=== PATIENT | female | born 1950 | race Caucasian/White ===

== ENCOUNTER → 2018-05-22 | Outpatient (CLI) | payer OTHER, MEDICAID ==
[~2018-05-22] MED LIST: BENZ-16 PO; FLUO20CA22 PO; HUM7525 SQ; HYDR-3686 PO; HYDR-4353 PO; LISI-643 PO; POTA10TA15 PO; ZOLP10TA PO
== END | disposition home or self-care (01) ==
LOC: CARD DIAG 13:09
PROVIDERS: ATTEND Internal Medicine
DX: I08.3 Combined rheumatic disorders of mitral, aortic and tricuspid valves (principal); I11.0 Hypertensive heart disease with heart failure; I50.9 Heart failure, unspecified; A41.9 Sepsis, unspecified organism; R00.0 Tachycardia, unspecified; J44.9 Chronic obstructive pulmonary disease, unspecified; E11.9 Type 2 diabetes mellitus without complications; Z79.4 Long term (current) use of insulin; Z87.891 Personal history of nicotine dependence
CPT/HCPCS: 93306

== ENCOUNTER 2019-01-21 16:51 | Inpatient (IN) | payer MEDICARE, MEDICAID ==
[~2019-01-21] VITALS: Ht 157.5 cm; Wt 36.3 kg
--- NOTE | 2019-01-21 16:55 | NUR ---
[facility], [place] [phone]
[2019-01-21] MEDS ORDERED: morphine 4 MG/ML inj SYRINge IV ONE ×2 (17:15→18:10)
[2019-01-21] MEDS ORDERED: levoFLOXACIN-Levaquin 750MG/D5 150 ML IV ONE (17:20)
[2019-01-21] MEDS ORDERED: metroNIDAZOLE-Flagyl 500mg/NS 100 ML IV ONE (17:20)
[2019-01-21 17:52] LABS: CLARITY,URINE CLEAR (Clear); COLOR,URINE STRAW (Yellow); GLUCOSE, URINE >=1000 mg/dl (Neg); KETONES,URINE NEGATIVE (Neg); LEUKOCYTE ESTERASE ,URINE NEGATIVE (Neg); NITRITES, URINE NEGATIVE (Neg); OCCULT BLOOD,URINE TRACE-INTACT (Neg); PROTEIN,URINE TRACE mg/dl (Neg); UROBILINOGEN,URINE 0.2 E.U/dL (0.2-1.0)
[2019-01-21 17:55] LABS: UA COLLECTION TYPE VOIDED
--- NOTE | 2019-01-21 18:08 | NUR ---
RELIEVING RN FOR LUNCH, PT IS RESTING QUIETLY ON GURNEY, C/O RT HAND PAIN, ASKING FOR MORPHINE, DR JOHNSON AWARE, GAVE VERBAL ORDER FOR MORPHINE 4MG IV X1 NOW
[2019-01-21 18:11] LABS: MUCUS STRANDS NONE SEEN /LPF (Neg); SQUAMOUS EPITHELIAL CELL,UR MODERATE /LPF (FEW)
[2019-01-21 18:12] LABS: BACTERIA,URINE NONE SEEN /HPF (Neg); RBC,URINE 0-2 /HPF (0-2)
[2019-01-21 18:13] LABS: YEAST FEW /HPF (NEGATIVE)
[2019-01-21 18:20] LABS: BASOPHILS # (AUTO) 0.1 X10'3 (0-0.2); BASOPHILS % (AUTO) 0.6 % (0-1); EOSINOPHILS # (AUTO) 0.1 X10'3 (0-0.9); EOSINOPHILS % (AUTO) 0.4 % (0-6); HEMATOCRIT 32.5 % (35.0-45.0); HEMOGLOBIN 10.7 g/dl (12.0-16.0); LYMPHOCYTES # (AUTO) 1.5 X10'3 (1.1-4.8); LYMPHOCYTES % (AUTO) 11.1 % (21-51); MEAN CORPUSCULAR HEMOGLOBIN 28.1 PG (27.0-31.0); MEAN CORPUSCULAR HGB CONC 32.9 g/dL (33.0-36.5); MEAN CORPUSCULAR VOLUME 85.4 FL (78-98); MEAN PLATELET VOLUME 8.4 FL (7.4-10.4); MONOCYTES # (AUTO) 0.4 X10'3 (0-0.9); MONOCYTES % (AUTO) 3.3 % (2-12); NEUTROPHILS # (AUTO) 11.2 X10'3 (1.8-7.7); NEUTROPHILS % (AUTO) 84.6 % (42-75); PLATELET COUNT 410 X10'3 (140-440); RED CELL DISTRIBUTION WIDTH 15.4 % (11.5-14.5); WHITE BLOOD COUNT 13.2 X10'3 (4.5-11.0)
[2019-01-21 18:28] LABS: ALANINE AMINOTRANSFERASE 6 U/L (12-78); ALBUMIN/GLOBULIN RATIO 0.4 (1.1-1.5); ALKALINE PHOSPHATASE 115 IU/L (46-116); ANION GAP 9 (8-16); ASPARTATE AMINO TRANSFERASE 7 U/L (10-37); BILIRUBIN,TOTAL 0.1 MG/DL (0.1-1.0); BLOOD UREA NITROGEN 14 MG/DL (7-18); BUN/CREATININE RATIO 17.7 (6.6-38.0); C-REACTIVE PROTEIN 15.76 MG/DL (0.0-0.5); CALCIUM 8.9 MG/DL (8.5-10.1); CHLORIDE 93 MMOL/L (99-107); CREATININE 0.79 MG/DL (0.40-0.90); MAGNESIUM 1.5 MG/DL (1.5-2.4); POTASSIUM 3.8 MMOL/L (3.5-5.1); SODIUM 128 MMOL/L (135-145); TOTAL CARBON DIOXIDE 26.1 MMOL/L (24-32); TOTAL PROTEIN 7.6 G/DL (6.4-8.2); eGFR 73 ML/MIN
[2019-01-21 18:35] LABS: GLUCOSE 491 MG/DL (70-104)
[2019-01-21 18:36] LABS: PARTIAL THROMBOPLASTIN TIME 31 SECONDS (22-32)
[2019-01-21] MEDS ORDERED: insulin regular, human 10 units/0.1 ml syringe IV ONE (18:40)
[2019-01-21] MEDS ORDERED: acetaminophen 325mg tablet PO PRN (19:35)
[2019-01-21] MEDS ORDERED: ondansetron/PF 4mg/2ml inj IV PRN (19:35)
[2019-01-21] MEDS ORDERED: magnesium 2GM in 50ml NS 50 ML IV PRN (19:35)
[2019-01-21] MEDS ORDERED: magnesium 4gm in 100ml NS 100 ML IV PRN (19:35)
[2019-01-21] MEDS ORDERED: potassium Cl 40MEQ/NS 500ml 500 ML IV PRN (19:35)
[2019-01-21] MEDS ORDERED: potassium Cl 20 mEq SR tablet PO PRN ×2 (19:35)
[2019-01-21] MEDS ORDERED: magnesium Cl slow-release 64mg tablet PO PRN (19:35)
[2019-01-21] MEDS ORDERED: glucagon, human recombinant 1mg kit SUBCUT PRN (19:40)
[2019-01-21] MEDS ORDERED: MESSAGE TO PHARMACY PO ONE (19:40)
[2019-01-21] MEDS ORDERED: dextrose 50%-water 50ml dispensing syringe IV PRN ×2 (19:40)
[2019-01-21] MEDS ORDERED: dextrose ORAL solution 15 GM/59 ML bottle PO PRN ×2 (19:40)
[2019-01-21 20:19] LABS: HEMOGLOBIN A1C > 14.0 % (4.5-6.2)
--- NOTE | 2019-01-21 20:25 | NUR ---
PATIENT ADMITTED TO ROOM 340B FROM ER FOR OSTEOMYELITIS. PLACED COMFORTABLE IN BED. PATIENT ASKING FOR FOOD, SANDWICH GIVEN.
[2019-01-21 21:00] VITALS: BP 113/73
[2019-01-21] MEDS: HYDROcodone/acetaminophen 5mg/325mg tablet PO PRN (22:09)
[2019-01-21] MEDS: normal saline 1000ml 1,000 ML IV SCH (22:10)
[2019-01-21] MEDS: insulin Lispro (HumaLOG) vial - multi-dose SQ SCH (23:09)
[2019-01-21] MEDS: insulin glargine (Lantus) pen - multi-dose SQ SCH (23:10)
--- NOTE | 2019-01-21 23:15 | NUR ---
PATIENT BECAME AGITATED WHEN INSULIN IS TO BE GIVEN AT THE BACK OF HER ARM WHERE SHE POINTED TO HER LEFT ARM WHEN ASKED WHERE SHE WANTS HER INJECTION TO HER ABDOMEN OR AT THE BACK OF HER UPPER ARM. PATIENT WANTED TO TALK TO OTHER NURSE AND SHE WANTED TO HAVE THE OTHER NURSE TO TAKE CARE OF HER.
[2019-01-21] MEDS: vancomycin/NS 1 GM ADD-VANTAGE 250 ML IV SCH (23:19)
--- NOTE | 2019-01-21 23:30 | NUR ---
Patient report given, questions answered & plan of care reviewed with JESSICA MANCILLA.
[2019-01-21] MEDS: zolpidem 5mg tablet PO PRN (23:56)
[2019-01-22] VITALS (11 sets, daily range): BP systolic 86–160; BP diastolic 44–92
[2019-01-22] MEDS: hydrOXYzine 25 MG tablet PO PRN ×2 (01:32→14:22)
[2019-01-22 04:54] LABS: BASOPHILS % (AUTO) 0.4 % (0-1); EOSINOPHILS # (AUTO) 0.1 X10'3 (0-0.9); EOSINOPHILS % (AUTO) 1.1 % (0-6); HEMATOCRIT 29.2 % (35.0-45.0); HEMOGLOBIN 9.7 g/dl (12.0-16.0); LYMPHOCYTES # (AUTO) 1.1 X10'3 (1.1-4.8); LYMPHOCYTES % (AUTO) 13.3 % (21-51); MEAN CORPUSCULAR HEMOGLOBIN 27.7 PG (27.0-31.0); MEAN CORPUSCULAR HGB CONC 33.1 g/dL (33.0-36.5); MEAN CORPUSCULAR VOLUME 83.9 FL (78-98); MEAN PLATELET VOLUME 8.1 FL (7.4-10.4); MONOCYTES # (AUTO) 0.4 X10'3 (0-0.9); MONOCYTES % (AUTO) 4.6 % (2-12); NEUTROPHILS # (AUTO) 6.7 X10'3 (1.8-7.7); NEUTROPHILS % (AUTO) 80.6 % (42-75); PLATELET COUNT 350 X10'3 (140-440); RED BLOOD COUNT 3.48 X10'6 (4.20-5.60); RED CELL DISTRIBUTION WIDTH 15.2 % (11.5-14.5); WHITE BLOOD COUNT 8.3 X10'3 (4.5-11.0)
[2019-01-22 05:00] LABS: ALBUMIN 1.6 G/DL (3.4-5.0); ANION GAP 5 (8-16); BLOOD UREA NITROGEN 18 MG/DL (7-18); BUN/CREATININE RATIO 20.2 (6.6-38.0); CALCIUM 8.4 MG/DL (8.5-10.1); CHLORIDE 102 MMOL/L (99-107); CREATININE 0.89 MG/DL (0.40-0.90); GLUCOSE 263 MG/DL (70-104); MAGNESIUM 1.3 MG/DL (1.5-2.4); POTASSIUM 3.3 MMOL/L (3.5-5.1); SODIUM 136 MMOL/L (135-145); TOTAL CARBON DIOXIDE 29.4 MMOL/L (24-32); eGFR 63 ML/MIN
[2019-01-22] MEDS ORDERED: morphine 2 MG/ML inj. syringe IV ONE (05:50)
--- NOTE | 2019-01-22 06:01 | NUR ---
Problems reprioritized. Patient report given, questions answered & plan of care reviewed with Arely MANCILLA. Addendum: 01/22/19 at 0602 by Deepa Desai RN Amended: Links added.
--- NOTE | 2019-01-22 07:00 | NUR ---
Patient in room [facility] 340. I have received report from HOLDEN MANCILLA and had the opportunity to ask questions and assume patient care.
[2019-01-22] MEDS: potassium CL 10mEq/100ml bag 100 ML IV PRN ×4 (08:40→20:06)
[2019-01-22] MEDS: K and/or MAG REPLACEMENT MC SCH (08:46)
[2019-01-22] MEDS ORDERED: ringers solution, lacted 1,000 ML IV SCH (09:42)
[2019-01-22] MEDS ORDERED: morphine 4 MG/ML inj SYRINge IV PRN ×2 (09:45)
[2019-01-22] MEDS ORDERED: enalaprilat dihydrate 2.5mg/2ml vial IV PRN (09:45)
[2019-01-22] MEDS ORDERED: fentaNYL/PF 50MCG/1 ML 2ML syringe IV PRN ×2 (09:45)
[2019-01-22] MEDS ORDERED: labetalol 20mg/4ml (5mg/ml) syringe IV PRN (09:45)
[2019-01-22] MEDS ORDERED: ondansetron/PF 4mg/2ml inj IV PRN (09:45)
[2019-01-22] MEDS ORDERED: BUPIVAcaine/PF 2.5mg/ml (0.25%) 10ml vial ONE (11:56)
[2019-01-22] MEDS ORDERED: potassium Cl 20 mEq/100mL bag IV ONE (12:10)
[2019-01-22] MEDS ORDERED: sevoflurane 250ml liquid IH ONE (12:10)
[2019-01-22] MEDS ORDERED: midazolam 2 mg/2 ml injection ONE (12:11)
[2019-01-22] MEDS ORDERED: fentaNYL/PF 50MCG/1 ML 2ML syringe ONE (12:11)
[2019-01-22] MEDS ORDERED: propofol inj 20 ML IV ONE (12:25)
[2019-01-22] MEDS ORDERED: ePHEDrine 50MG/ML INJ. ONE (12:25)
[2019-01-22] MEDS ORDERED: dexamethasone sod phosphate 4mg/ml inj. ONE (12:25)
[2019-01-22] MEDS ORDERED: ondansetron/PF 4mg/2ml inj ONE (12:29)
--- NOTE | 2019-01-22 12:55 | NUR ---
DM consult: Pt with T2DM with A1c >14. Pt currently documented as confused and A/O x1; DM ed not appropriate at this time. Pt admit with osteomyelitis to right finger, currently in surgical waiting room to undergo finger amputation. Pt will need protein and DM ed prior to discharge once alert and oriented. Noted that pt with an underweight BMI however current documented wt unreliable as it is pt stated and pt currently confused. Pt currently on heart healthy diet with documented 100% PO intake x 1 meal. [employer] for addition of CHO controlled diet given T2DM with elevated A1c. No documented LBM. Will continue to follow. Recommendations: 1) Continue heart healthy diet with addition of CHO controlled 2) Monitor need for ONS 3) DM and protein education prior to discharge once pt alert and oriented 4) Wt per rx Addendum: 01/22/19 at [address] Amended: Links added.
--- NOTE | 2019-01-22 13:00 | NUR ---
Received from OR via bed, accompanied by Anesthesiologist. Report received. Initial physical assessment done and recorded.
[2019-01-22] MEDS: HYDROcodone/acetaminophen 5mg/325mg tablet PO PRN (14:22)
[2019-01-22] MEDS: normal saline 1000ml 1,000 ML IV SCH (17:00)
--- NOTE | 2019-01-22 18:30 | NUR ---
Patient in room [facility] 340. I have received report from Arely MANCILLA and had the opportunity to ask questions and assume patient care.
--- NOTE | 2019-01-22 18:30 | NUR ---
Problems reprioritized. Patient report given, questions answered & plan of care reviewed with jody saha.
[2019-01-22] MEDS: oxyCODONE IR 5mg (immed. release) tablet PO PRN (18:52)
[2019-01-22] MEDS: insulin Lispro (HumaLOG) vial - multi-dose SQ SCH ×2 (18:56→21:27)
[2019-01-22] MEDS: lactobacillus rhamnosus 10,000 MMU CELLS/CAPSULE PO SCH (19:02)
[2019-01-22] MEDS: vancomycin/NS 1 GM ADD-VANTAGE 250 ML IV SCH (21:24)
[2019-01-22] MEDS: insulin glargine (Lantus) pen - multi-dose SQ SCH (21:30)
[2019-01-22] MEDS: zolpidem 5mg tablet PO PRN (21:39)
[2019-01-23] MEDS ORDERED: DOXE10CA2 PO (00:43)
[2019-01-23] MEDS ORDERED: LISI-604 PO (00:43)
[2019-01-23] MEDS ORDERED: BACL10TA PO (00:43)
[2019-01-23] MEDS ORDERED: FURO-150 PO (00:43)
[2019-01-23] MEDS ORDERED: FLUO10CA28 PO (00:43)
[2019-01-23] MEDS ORDERED: PIMO1TAB2 PO (00:47)
[2019-01-23] MEDS ORDERED: DICL100T85 PO (00:47)
[2019-01-23] MEDS ORDERED: TRAZ-251 PO (00:49)
[2019-01-23 01:00] VITALS: BP 154/76
[2019-01-23 04:00] VITALS: BP 193/83
[2019-01-23] MEDS: oxyCODONE IR 5mg (immed. release) tablet PO PRN ×2 (04:27→10:06)
[2019-01-23] MEDS: hydrOXYzine 25 MG tablet PO PRN (04:27)
[2019-01-23 05:30] VITALS: BP 185/84
--- NOTE | 2019-01-23 05:30 | NUR ---
barrett REDDY paged: PAGER ID: [phone] MESSAGE: Robert 340B Surgical [id number] Trevin RN BP is 185/84, Pt post-op finger amp. Pt off Lasix and lisinopril for 2 days, med rec never done. Please advise, thank you
--- NOTE | 2019-01-23 06:27 | NUR ---
Problems reprioritized. Patient report given, questions answered & plan of care reviewed with Arely MANCILLA.
[2019-01-23 06:36] LABS: BASOPHILS % (AUTO) 0.1 % (0-1); EOSINOPHILS % (AUTO) 0 % (0-6); HEMATOCRIT 34.8 % (35.0-45.0); HEMOGLOBIN 11.5 g/dl (12.0-16.0); LYMPHOCYTES # (AUTO) 1.2 X10'3 (1.1-4.8); LYMPHOCYTES % (AUTO) 8.5 % (21-51); MEAN CORPUSCULAR HEMOGLOBIN 27.8 PG (27.0-31.0); MEAN CORPUSCULAR HGB CONC 33.2 g/dL (33.0-36.5); MEAN CORPUSCULAR VOLUME 83.7 FL (78-98); MEAN PLATELET VOLUME 7.9 FL (7.4-10.4); MONOCYTES # (AUTO) 0.4 X10'3 (0-0.9); NEUTROPHILS # (AUTO) 12.5 X10'3 (1.8-7.7); NEUTROPHILS % (AUTO) 88.4 % (42-75); PLATELET COUNT 524 X10'3 (140-440); RED BLOOD COUNT 4.15 X10'6 (4.20-5.60); RED CELL DISTRIBUTION WIDTH 15.3 % (11.5-14.5); WHITE BLOOD COUNT 14.1 X10'3 (4.5-11.0)
--- NOTE | 2019-01-23 06:36 | NUR ---
Patient in room [facility] 340. I have received report from ORALIA MANCILLA and had the opportunity to ask questions and assume patient care.
[2019-01-23 07:00] VITALS: BP 156/73
[2019-01-23 07:18] LABS: ALBUMIN 1.6 G/DL (3.4-5.0); ANION GAP 6 (8-16); BLOOD UREA NITROGEN 11 MG/DL (7-18); BUN/CREATININE RATIO 16.7 (6.6-38.0); CALCIUM 9.1 MG/DL (8.5-10.1); CHLORIDE 104 MMOL/L (99-107); CREATININE 0.66 MG/DL (0.40-0.90); GLUCOSE 204 MG/DL (70-104); MAGNESIUM 1.5 MG/DL (1.5-2.4); POTASSIUM 4.2 MMOL/L (3.5-5.1); SODIUM 137 MMOL/L (135-145); TOTAL CARBON DIOXIDE 26.6 MMOL/L (24-32); eGFR 90 ML/MIN
[2019-01-23] MEDS ORDERED: hyDRALAzine 10mg tablet PO PRN (07:45)
[2019-01-23] MEDS: K and/or MAG REPLACEMENT MC SCH (08:00)
[2019-01-23] MEDS: lactobacillus rhamnosus 10,000 MMU CELLS/CAPSULE PO SCH (08:01)
[2019-01-23] MEDS: insulin Lispro (HumaLOG) vial - multi-dose SQ SCH (09:31)
[2019-01-23] MEDS ORDERED: FLUoxetine 10mg capsule PO SCH (11:30)
[2019-01-23] MEDS ORDERED: lisinopril 5mg tablet PO SCH (11:30)
[2019-01-23] MEDS ORDERED: PER10325T PO (11:40)
[2019-01-23] MEDS ORDERED: CLIN-5 PO (11:40)
--- NOTE | 2019-01-23 11:52 | NUR ---
DISCHARGE ORDERS PUT IN COMPUTER AT 1132. AT 1155 HOSPITALIST CAME TO SPEAK TO PT ABOUT DISCHARGE. I HAVE TRIED TO CALL ALL THREE [employer]AND [employer]UGHTERS FOR TRANSPORTATION FOR THIS PT. NO ONE IS ANSWERING. CALLED PT'S BOYFRIEND AND HE STATES, ITS THE GRAD [employer]UGHTERS WHO WILL PICK HER UP, NOT HIM
--- NOTE | 2019-01-23 12:21 | NUR ---
CALLED FAMILY AGAIN OR PICK-UP. NO ANSWER
[2019-01-23] MEDS ORDERED: [UNRECOGNIZED DRUG - OTHER] PO SCH (13:00)
--- NOTE | 2019-01-23 13:40 | NUR ---
PT HAD A PICTURE OF HER WOUND ON ADMISSION. THIS WOUND WAS AMPUTATED. NO FINGER TO TAKE PIC OF ON D/C
--- NOTE | 2019-01-23 14:27 | NUR ---
PT'S FAMILY CAME TO PICK HER UP AND THEY LEFT WITHOUT WAITING TO SIGN DISCHARGE PAPERS. I CALLED THE PT'S GRAND DAUGHTER ON THE PHONE AND ASKED HER TO COME BACK TO SIGN PAPERS AND GO OVER HER DISCHARGE INSTRUCTIONS. PT AND GRAND DAUGHTER REFUSED TO LISTEN TO D/C INSTRUCTIONS OR SIGN MEDICARE FORM. SHE ALSO REFUSED TO TAKE PRESCRIPTION FOR PAIN MEDS. SHE STATED WE GO NOW OR YOU NEED TO FIND ANOTHER RIDE FOR HER. I STATED I UNDERSTAND GO AHEAD. SCRIPT WAS LEFT BEHIND. Addendum: 01/23/19 at 1448 by Arely Bonilla RN ALSO ABX PERSCRIBED POST OP WERE LEFT BEHIND
--- NOTE | 2019-01-23 15:12 | NUR ---
SPOKE WITH GRAND DAUGHTER, SHE ASKED ME TO CALL IN PT'S ABX TO CV IN [place]. SCRIPT CALLED IN AT [id number]
[2019-01-23] MEDS ORDERED: furosemide 20MG tablet PO SCH (20:00)
[2019-01-23] MEDS ORDERED: doxepin 10mg capsule PO SCH (21:00)
[2019-01-23] MEDS ORDERED: traZODone 50mg tablet PO SCH (21:00)
[2019-01-23] MEDS ORDERED: baclofen 10mg tablet PO SCH (21:00)
[2019-01-24] MEDS ORDERED: VANCOMYCIN LEVEL IV ONE (21:30)
== END 2019-01-23 14:28 | disposition home or self-care (01) | DRG 987 ==
LOC: ER 16:51 → SUR 3N 21:03
PROVIDERS: ADMIT Internal Medicine; ATTEND Family Medicine
PROC: 0L970ZZ Drainage of Right Hand Tendon, Open Approach (ICD-10-PCS; 2019-01-22)
PROC: 0X6N0Z1 Detachment at Right Index Finger, High, Open Approach (ICD-10-PCS; principal; 2019-01-22 12:10)
DX: E10.69 Type 1 diabetes mellitus with other specified complication (principal); E43 Unspecified severe protein-calorie malnutrition; E87.1 Hypo-osmolality and hyponatremia; M86.8X4 Other osteomyelitis, hand; M65.841 Other synovitis and tenosynovitis, right hand; B95.62 Methicillin resistant Staphylococcus aureus infection as the cause of diseases classified elsewhere; E03.9 Hypothyroidism, unspecified; E10.65 Type 1 diabetes mellitus with hyperglycemia; I10 Essential (primary) hypertension; E86.0 Dehydration; F32.9 Major depressive disorder, single episode, unspecified; I25.10 Atherosclerotic heart disease of native coronary artery without angina pectoris; J44.9 Chronic obstructive pulmonary disease, unspecified; F12.90 Cannabis use, unspecified, uncomplicated; F17.210 Nicotine dependence, cigarettes, uncomplicated; K21.9 Gastro-esophageal reflux disease without esophagitis; Z79.4 Long term (current) use of insulin; Z85.038 Personal history of other malignant neoplasm of large intestine; Z88.0 Allergy status to penicillin; Z79.899 Other long term (current) drug therapy
CPT/HCPCS: 36415; 71045; 73140; 80048; 80053; 81001; 82948; 83036; 83605; 83735; 84145; 85025; 85610; 85651; 85730; 86140; 87040; 87070; 87075; 87077; 87088; 87102; 87186; 88305; 88311; 93005; 96365; 96367; 96375; 96376; 99285; A4618; A6222; A6446; A6449; A7000; G0378; J1100; J1815; J1956; J2250; J2270; J2405; J2704; J3010; J3370; J3480; J3490; J7030; J7120; Z7610

== ENCOUNTER 2019-07-21 14:04 | Inpatient (IN) | payer MEDICARE, MEDICAID ==
[~2019-07-21] VITALS: Ht 144.8 cm; Wt 36.0 kg
[~2019-07-21 14:04] MED LIST changes: +BACL10TA PO; -BENZ-16 PO; +CLIN-5 PO; +DICL100T85 PO; +DOXE10CA2 PO; +FLUO10CA28 PO; -FLUO20CA22 PO; +FURO-150 PO; -HYDR-3686 PO; -HYDR-4353 PO; +LISI-604 PO; -LISI-643 PO; +PIMO1TAB2 PO; -POTA10TA15 PO; +TRAZ-251 PO; -ZOLP10TA PO
[2019-07-21] MEDS ORDERED: HYDROcodone/acetaminophen 10/325mg tab PO ONE (14:45)
[2019-07-21] MEDS ORDERED: ondansetron/PF 4mg/2ml inj IV ONE (15:10)
[2019-07-21] MEDS ORDERED: morphine 4 MG/ML inj SYRINge IV ONE ×2 (15:10→18:50)
[2019-07-21] MEDS ORDERED: CefTRIAXone/D5W-Rocephin 1gm 50 ML IV ONE (15:20)
[2019-07-21] MEDS ORDERED: vancomycin/NS 1 GM ADD-VANTAGE 250 ML X 1 DOSE IV ONE (15:45)
[2019-07-21 16:04] LABS: BASOPHILS # (AUTO) 0.1 X10'3 (0-0.2); EOSINOPHILS % (AUTO) 0.4 % (0-6); HEMATOCRIT 31.6 % (35.0-45.0); HEMOGLOBIN 10.8 g/dl (12.0-16.0); LYMPHOCYTES # (AUTO) 1.4 X10'3 (1.1-4.8); LYMPHOCYTES % (AUTO) 15.6 % (21-51); MEAN CORPUSCULAR HEMOGLOBIN 30.3 PG (27.0-31.0); MEAN CORPUSCULAR HGB CONC 34.2 g/dL (33.0-36.5); MEAN CORPUSCULAR VOLUME 88.6 FL (78-98); MEAN PLATELET VOLUME 7.3 FL (7.4-10.4); MONOCYTES # (AUTO) 0.4 X10'3 (0-0.9); MONOCYTES % (AUTO) 4.3 % (2-12); NEUTROPHILS # (AUTO) 7.3 X10'3 (1.8-7.7); NEUTROPHILS % (AUTO) 78.7 % (42-75); PLATELET COUNT 494 X10'3 (140-440); RED BLOOD COUNT 3.57 X10'6 (4.20-5.60); RED CELL DISTRIBUTION WIDTH 14.1 % (11.5-14.5); WHITE BLOOD COUNT 9.2 X10'3 (4.5-11.0)
[2019-07-21 16:27] LABS: ALANINE AMINOTRANSFERASE 11 U/L (12-78); ALBUMIN 2.1 G/DL (3.4-5.0); ALBUMIN/GLOBULIN RATIO 0.4 (1.1-1.5); ALKALINE PHOSPHATASE 97 IU/L (46-116); ANION GAP 6 (8-16); ASPARTATE AMINO TRANSFERASE 10 U/L (10-37); BILIRUBIN,TOTAL 0.2 MG/DL (0.1-1.0); BLOOD UREA NITROGEN 15 MG/DL (7-18); BUN/CREATININE RATIO 16.7 (6.6-38.0); C-REACTIVE PROTEIN 10.19 MG/DL (0.0-0.5); CALCIUM 8.7 MG/DL (8.5-10.1); CHLORIDE 97 MMOL/L (99-107); GLUCOSE 392 MG/DL (70-104); POTASSIUM 3.2 MMOL/L (3.5-5.1); SODIUM 133 MMOL/L (135-145); TOTAL CARBON DIOXIDE 29.7 MMOL/L (24-32); TOTAL PROTEIN 7.4 G/DL (6.4-8.2); eGFR 62 ML/MIN
[2019-07-21] MEDS ORDERED: FORM20VI INH (16:39)
[2019-07-21] MEDS ORDERED: LEVO50TA8 PO (16:39)
[2019-07-21] MEDS ORDERED: AMLO5TAB16 PO (16:39)
[2019-07-21] MEDS ORDERED: ATR0.5NEB INH (16:39)
[2019-07-21] MEDS ORDERED: CELE100C98 PO (16:39)
[2019-07-21] MEDS ORDERED: INSU100V40 SQ (16:39)
[2019-07-21] MEDS ORDERED: INSU100V9 SQ (16:39)
[2019-07-21] MEDS ORDERED: PANT40TA4 PO (16:39)
[2019-07-21] MEDS ORDERED: acetaminophen 325mg tablet PO PRN (16:40)
[2019-07-21] MEDS ORDERED: magnesium hydroxide 30ml (MOM) UD suspension PO PRN (16:40)
[2019-07-21] MEDS ORDERED: ondansetron/PF 4mg/2ml inj IV PRN (16:40)
[2019-07-21] MEDS ORDERED: mag hydrox/Alum hydrox/simeth 30ml oral suspension PO PRN (16:40)
[2019-07-21] MEDS ORDERED: albuterol 2.5 MG/3 ML nebule NEB PRN (18:05)
[2019-07-21] MEDS ORDERED: LORazepam 2 mg/ml vial IV ONE (18:50)
[2019-07-21 19:25] VITALS: BP 101/55
--- NOTE | 2019-07-21 19:25 | NUR ---
PATIENT ASMITTED TO ROOM 359A FROM ER FOR LEFT MIDDLE FINGER NECROSIS. PLACED COMFORTABLE IN BED VITAL SIGNS TAKEN AND RECORDED.
[2019-07-21] MEDS: ipratropium 0.5 MG/2.5ML nebule IH SCH (19:55)
[2019-07-21] MEDS: furosemide 20MG tablet PO SCH (20:00)
[2019-07-21] MEDS: celeCOXIB 100mg capsule PO SCH (20:00)
[2019-07-21] MEDS: normal saline 1000ml 1,000 ML IV SCH (20:06)
[2019-07-21] MEDS: clindamycin 600mg/D5W 50ml 50 ML IV SCH (20:13)
[2019-07-21] MEDS: baclofen 10mg tablet PO SCH (20:18)
[2019-07-21] MEDS: traZODone 50mg tablet PO SCH (20:18)
[2019-07-21] MEDS: heparin, porcine 5000 units/ml vial SQ SCH (20:23)
[2019-07-21] MEDS ORDERED: insulin glargine (Lantus) pen - multi-dose SQ SCH (21:00)
[2019-07-21] MEDS ORDERED: dextrose 50%-water 50ml dispensing syringe IV PRN ×2 (21:55)
[2019-07-21] MEDS ORDERED: dextrose ORAL solution 15 GM/59 ML bottle PO PRN ×2 (21:55)
[2019-07-21] MEDS ORDERED: glucagon, human recombinant 1mg kit SUBCUT PRN (21:55)
[2019-07-21] MEDS ORDERED: MESSAGE TO PHARMACY PO ONE (21:55)
[2019-07-21] MEDS: insulin Lispro (HumaLOG) vial - multi-dose SQ SCH (22:54)
[2019-07-21] MEDS: insulin glargine (Lantus) pen - multi-dose SQ SCH (22:57)
[2019-07-22] VITALS (18 sets, daily range): BP systolic 89–152; BP diastolic 40–78
[2019-07-22] MEDS: clindamycin 600mg/D5W 50ml 50 ML IV SCH ×4 (01:57→19:41)
[2019-07-22] MEDS: morphine 2 MG/ML inj. syringe IV PRN ×4 (04:54→21:00)
[2019-07-22] MEDS: normal saline 1000ml 1,000 ML IV SCH ×4 (04:59→23:28)
--- NOTE | 2019-07-22 05:23 | NUR ---
Pt has been unable to answer any admit questions, sedated and now confused, yelling not answering any questions. Addendum: 07/22/19 at 0524 by Miguelina Matthews RN Amended: Links added.
--- NOTE | 2019-07-22 06:28 | NUR ---
Problems reprioritized. Patient report given, questions answered & plan of care reviewed with NAN MANCILLA.
--- NOTE | 2019-07-22 06:35 | NUR ---
Patient in room [facility] 359. I have received report from Tennille Null RN and had the opportunity to ask questions and assume patient care.
[2019-07-22 06:43] LABS: ALBUMIN 1.7 G/DL (3.4-5.0); ANION GAP 9 (8-16); BLOOD UREA NITROGEN 9 MG/DL (7-18); BUN/CREATININE RATIO 16.1 (6.6-38.0); CALCIUM 7.9 MG/DL (8.5-10.1); CHLORIDE 102 MMOL/L (99-107); CREATININE 0.56 MG/DL (0.40-0.90); GLUCOSE 231 MG/DL (70-104); SODIUM 136 MMOL/L (135-145); TOTAL CARBON DIOXIDE 24.6 MMOL/L (24-32); eGFR > 90 ML/MIN
[2019-07-22] MEDS: ipratropium 0.5 MG/2.5ML nebule IH SCH ×2 (07:36→19:32)
[2019-07-22] MEDS: furosemide 20MG tablet PO SCH ×2 (08:00→20:00)
[2019-07-22] MEDS: insulin Lispro (HumaLOG) vial - multi-dose SQ SCH (09:15)
[2019-07-22 09:17] LABS: BASOPHILS % (AUTO) 0.5 % (0-1); EOSINOPHILS # (AUTO) 0.1 X10'3 (0-0.9); EOSINOPHILS % (AUTO) 0.8 % (0-6); HEMATOCRIT 33.2 % (35.0-45.0); HEMOGLOBIN 11.4 g/dl (12.0-16.0); LYMPHOCYTES # (AUTO) 0.8 X10'3 (1.1-4.8); LYMPHOCYTES % (AUTO) 8.7 % (21-51); MEAN CORPUSCULAR HEMOGLOBIN 30.1 PG (27.0-31.0); MEAN CORPUSCULAR HGB CONC 34.2 g/dL (33.0-36.5); MEAN CORPUSCULAR VOLUME 87.9 FL (78-98); MEAN PLATELET VOLUME 7.2 FL (7.4-10.4); MONOCYTES # (AUTO) 0.4 X10'3 (0-0.9); MONOCYTES % (AUTO) 4.7 % (2-12); NEUTROPHILS # (AUTO) 7.8 X10'3 (1.8-7.7); NEUTROPHILS % (AUTO) 85.3 % (42-75); PLATELET COUNT 386 X10'3 (140-440); RED BLOOD COUNT 3.78 X10'6 (4.20-5.60); RED CELL DISTRIBUTION WIDTH 14.5 % (11.5-14.5); WHITE BLOOD COUNT 9.2 X10'3 (4.5-11.0)
[2019-07-22] MEDS: heparin, porcine 5000 units/ml vial SQ SCH ×2 (09:17→19:42)
[2019-07-22] MEDS: amLODIPine 5mg tablet PO SCH (09:18)
[2019-07-22] MEDS: celeCOXIB 100mg capsule PO SCH ×2 (09:18→19:41)
[2019-07-22] MEDS: pantoprazole 40mg Tablet.DR PO SCH (09:18)
[2019-07-22] MEDS: FLUoxetine 10mg capsule PO SCH (09:18)
[2019-07-22] MEDS: levoTHYROXINE 25mcg tablet PO SCH (09:19)
[2019-07-22 09:36] LABS: HEMOGLOBIN A1C > 14.0 % (4.5-6.2)
[2019-07-22] MEDS ORDERED: potassium Cl 20 mEq SR tablet PO PRN ×2 (11:00)
[2019-07-22] MEDS ORDERED: magnesium 4gm in 100ml NS 100 ML IV PRN (11:00)
[2019-07-22] MEDS ORDERED: magnesium Cl slow-release 64mg tablet PO PRN (11:00)
[2019-07-22] MEDS: potassium CL 10mEq/100ml bag 100 ML IV PRN ×4 (12:14→17:34)
[2019-07-22] MEDS ORDERED: BUPIVAcaine/PF 2.5 mg/ml (0.25%) 30ml vial ONE (14:30)
[2019-07-22] MEDS ORDERED: ringers solution, lacted 1,000 ML IV SCH (15:24)
[2019-07-22] MEDS ORDERED: proCHLORperazine 10 MG/2 ml inj IV PRN (15:25)
[2019-07-22] MEDS ORDERED: morphine 4 MG/ML inj SYRINge IV PRN ×2 (15:25)
[2019-07-22] MEDS ORDERED: ondansetron/PF 4mg/2ml inj IV PRN (15:25)
[2019-07-22] MEDS ORDERED: meperidine/PF 25mg/ml syringe IV PRN ×3 (15:25)
[2019-07-22] MEDS ORDERED: sevoflurane 250ml liquid IH ONE (15:26)
[2019-07-22] MEDS ORDERED: fentaNYL/PF 50MCG/1 ML 2ML syringe ONE (15:30)
[2019-07-22] MEDS ORDERED: propofol inj 20 ML IV ONE (16:02)
--- NOTE | 2019-07-22 16:15 | NUR ---
Received from OR via BED, accompanied by Anesthesiologist DR ARGUETA-- and report given by Anesthesiolgist. PATIENT A&OX4, DENIES PAIN, V/S WNL, NEUROVASCULAR CHECKS INTACT, 22G PIV RUE, SCD ON, LEFT HAND DRESSING ON CDI
[2019-07-22] MEDS ORDERED: VANCOMYCIN LEVEL PO ONE (16:30)
--- NOTE | 2019-07-22 17:05 | NUR ---
PATIENT A&OX4, DENIES PAIN, V/S WNL, NEUROVASCULAR CHECKS INTACT, 22G PIV RUE, SCD ON, LEFT HAND DRESSING ON CDI, PATIENT TAKEN TO 359A WITH ALL BELONGINGS AND HOOKED UP TO MONITORS IN ROOM AND REPORT GIVEN TO RN WHO HAS TAKEN OVER PATIENT CARE.
[2019-07-22] MEDS: vancomycin/NS 1 GM ADD-VANTAGE 250 ML IV SCH (17:36)
--- NOTE | 2019-07-22 18:40 | NUR ---
Problems reprioritized. Patient report given, questions answered & plan of care reviewed with CHARO Chang.
[2019-07-22] MEDS: K and/or MAG REPLACEMENT MC SCH (20:00)
[2019-07-22] MEDS: baclofen 10mg tablet PO SCH (21:00)
[2019-07-22] MEDS: traZODone 50mg tablet PO SCH (21:00)
[2019-07-22] MEDS ORDERED: insulin glargine (Lantus) pen - multi-dose SQ SCH (21:00)
[2019-07-22] MEDS: insulin glargine (Lantus) pen - multi-dose SQ SCH (21:00)
[2019-07-23] VITALS: BP 146/83
[2019-07-23] MEDS: clindamycin 600mg/D5W 50ml 50 ML IV SCH ×2 (02:20→07:15)
[2019-07-23] MEDS: morphine 2 MG/ML inj. syringe IV PRN ×4 (02:33→19:10)
[2019-07-23 05:21] LABS: BASOPHILS # (AUTO) 0.1 X10'3 (0-0.2); BASOPHILS % (AUTO) 0.5 % (0-1); EOSINOPHILS % (AUTO) 0.3 % (0-6); HEMATOCRIT 33.5 % (35.0-45.0); HEMOGLOBIN 11.3 g/dl (12.0-16.0); LYMPHOCYTES # (AUTO) 0.8 X10'3 (1.1-4.8); LYMPHOCYTES % (AUTO) 7.8 % (21-51); MEAN CORPUSCULAR HEMOGLOBIN 30.4 PG (27.0-31.0); MEAN CORPUSCULAR HGB CONC 33.9 g/dL (33.0-36.5); MEAN CORPUSCULAR VOLUME 89.6 FL (78-98); MEAN PLATELET VOLUME 7.4 FL (7.4-10.4); MONOCYTES # (AUTO) 0.5 X10'3 (0-0.9); MONOCYTES % (AUTO) 4.7 % (2-12); NEUTROPHILS # (AUTO) 9.4 X10'3 (1.8-7.7); NEUTROPHILS % (AUTO) 86.7 % (42-75); PLATELET COUNT 488 X10'3 (140-440); RED BLOOD COUNT 3.74 X10'6 (4.20-5.60); RED CELL DISTRIBUTION WIDTH 14.6 % (11.5-14.5); WHITE BLOOD COUNT 10.9 X10'3 (4.5-11.0)
[2019-07-23 05:36] LABS: ALBUMIN 1.8 G/DL (3.4-5.0); ANION GAP 13 (8-16); BLOOD UREA NITROGEN 13 MG/DL (7-18); BUN/CREATININE RATIO 16.7 (6.6-38.0); CALCIUM 8.3 MG/DL (8.5-10.1); CHLORIDE 102 MMOL/L (99-107); CREATININE 0.78 MG/DL (0.40-0.90); GLUCOSE 159 MG/DL (70-104); POTASSIUM 3.9 MMOL/L (3.5-5.1); SODIUM 137 MMOL/L (135-145); TOTAL CARBON DIOXIDE 21.6 MMOL/L (24-32); eGFR 74 ML/MIN
--- NOTE | 2019-07-23 06:37 | NUR ---
Report given to CHARO Johns
--- NOTE | 2019-07-23 06:41 | NUR ---
Patient in room [facility] 359. I have received report from Bernardo MANCILLA and had the opportunity to ask questions and assume patient care.
[2019-07-23] MEDS: levoTHYROXINE 25mcg tablet PO SCH (07:18)
[2019-07-23] MEDS: amLODIPine 5mg tablet PO SCH (07:19)
[2019-07-23] MEDS: pantoprazole 40mg Tablet.DR PO SCH (07:19)
[2019-07-23] MEDS: celeCOXIB 100mg capsule PO SCH ×2 (07:19→19:10)
[2019-07-23] MEDS: furosemide 20MG tablet PO SCH ×2 (07:19→19:12)
[2019-07-23] MEDS: heparin, porcine 5000 units/ml vial SQ SCH ×2 (07:19→19:11)
[2019-07-23] MEDS: FLUoxetine 10mg capsule PO SCH (07:19)
[2019-07-23] MEDS: K and/or MAG REPLACEMENT MC SCH ×2 (08:00→20:00)
[2019-07-23] MEDS: ipratropium 0.5 MG/2.5ML nebule IH SCH ×2 (08:20→20:21)
[2019-07-23] MEDS: insulin Lispro (HumaLOG) vial - multi-dose SQ SCH ×3 (08:38→19:00)
[2019-07-23 09:00] VITALS: BP 152/75
[2019-07-23] MEDS: normal saline 1000ml 1,000 ML IV SCH (10:49)
--- NOTE | 2019-07-23 11:47 | NUR ---
DM consult: Pt with A1c greater than 14. Pt is non-compliant with DM management with hx meth abuse per H&P, secondary social studies teacher has been consulted. Pt admit with cellulitis to left hand with necrosis to middle finger with possible osteomyelitis and sepsis; sepsis score 0 per H&P. Pt s/p amputation to middle finger and third metacarpal. Pt documented as confused, A/O x 2, and agitated. Pt would benefit from protein and DM education with referral to outpatient DM class prior to discharge once pt stable, alert, and oriented. Pt on CHO controlled diet documented with 50% PO intake at dinner last night, pending further documentation of PO intake today. Pt with low BMI of 17.2 using current standing scaled weight 36 kg, most recent wt hx is pt reported wt of 36.2 kg in January of this year. Pt currently 93% IBW. No documented LBM. Will continue to follow closely. Recommendations: 1) Continue CHO controlled diet 2) Monitor need for ONS/additional protein 3) DM and protein education prior to discharge once stable 4) Bowel care PRN 5) Wt per rx Addendum: 07/23/19 at [address] Amended: Links added.
[2019-07-23] MEDS: vancomycin/NS 1 GM ADD-VANTAGE 250 ML IV SCH (17:47)
[2019-07-23] MEDS: cefpodoxime proxetil 100mg tablet PO SCH (17:48)
[2019-07-23 18:40] VITALS: BP 129/69
--- NOTE | 2019-07-23 19:09 | NUR ---
Problems reprioritized. Patient report given, questions answered & plan of care reviewed with Bernardo MANCILLA.
[2019-07-23] MEDS: metroNIDAZOLE 500mg tablet PO SCH (19:10)
[2019-07-23] MEDS: baclofen 10mg tablet PO SCH (22:09)
[2019-07-23] MEDS: traZODone 50mg tablet PO SCH (22:09)
[2019-07-23] MEDS: insulin glargine (Lantus) pen - multi-dose SQ SCH (22:11)
[2019-07-24 04:00] VITALS: BP 138/66
[2019-07-24] MEDS: morphine 2 MG/ML inj. syringe IV PRN ×4 (04:06→17:16)
[2019-07-24] MEDS: normal saline 1000ml 1,000 ML IV SCH ×3 (04:38→17:15)
[2019-07-24 05:57] LABS: ALBUMIN 1.3 G/DL (3.4-5.0); ANION GAP 9 (8-16); BLOOD UREA NITROGEN 17 MG/DL (7-18); BUN/CREATININE RATIO 14.7 (6.6-38.0); CALCIUM 7.7 MG/DL (8.5-10.1); CHLORIDE 107 MMOL/L (99-107); CREATININE 1.16 MG/DL (0.40-0.90); GLUCOSE 173 MG/DL (70-104); POTASSIUM 3.4 MMOL/L (3.5-5.1); SODIUM 140 MMOL/L (135-145); TOTAL CARBON DIOXIDE 24.5 MMOL/L (24-32); eGFR 47 ML/MIN
[2019-07-24 05:58] LABS: BASOPHILS % (AUTO) 0.3 % (0-1); EOSINOPHILS # (AUTO) 0.1 X10'3 (0-0.9); EOSINOPHILS % (AUTO) 0.8 % (0-6); HEMATOCRIT 30.8 % (35.0-45.0); HEMOGLOBIN 10.3 g/dl (12.0-16.0); LYMPHOCYTES # (AUTO) 1.2 X10'3 (1.1-4.8); LYMPHOCYTES % (AUTO) 14.1 % (21-51); MEAN CORPUSCULAR HGB CONC 33.6 g/dL (33.0-36.5); MEAN CORPUSCULAR VOLUME 89.3 FL (78-98); MEAN PLATELET VOLUME 7.6 FL (7.4-10.4); MONOCYTES # (AUTO) 0.5 X10'3 (0-0.9); MONOCYTES % (AUTO) 6.6 % (2-12); NEUTROPHILS # (AUTO) 6.5 X10'3 (1.8-7.7); NEUTROPHILS % (AUTO) 78.2 % (42-75); PLATELET COUNT 422 X10'3 (140-440); RED BLOOD COUNT 3.44 X10'6 (4.20-5.60); RED CELL DISTRIBUTION WIDTH 14.4 % (11.5-14.5); WHITE BLOOD COUNT 8.3 X10'3 (4.5-11.0)
--- NOTE | 2019-07-24 06:41 | NUR ---
Report given to CHARO Carrillo
[2019-07-24 07:00] VITALS: BP 112/70
--- NOTE | 2019-07-24 07:05 | NUR ---
Patient in room [facility] 359. I have received report from CHARO Chang and had the opportunity to ask questions and assume patient care.
[2019-07-24] MEDS: heparin, porcine 5000 units/ml vial SQ SCH ×2 (07:40→20:00)
[2019-07-24] MEDS: levoTHYROXINE 25mcg tablet PO SCH (07:41)
[2019-07-24] MEDS: celeCOXIB 100mg capsule PO SCH ×2 (07:41→20:34)
[2019-07-24] MEDS: furosemide 20MG tablet PO SCH ×2 (07:41→20:34)
[2019-07-24] MEDS: metroNIDAZOLE 500mg tablet PO SCH ×2 (07:41→20:34)
[2019-07-24] MEDS: amLODIPine 5mg tablet PO SCH (07:41)
[2019-07-24] MEDS: FLUoxetine 10mg capsule PO SCH (07:41)
[2019-07-24] MEDS: pantoprazole 40mg Tablet.DR PO SCH (07:41)
[2019-07-24] MEDS: cefpodoxime proxetil 100mg tablet PO SCH ×2 (07:50→17:16)
[2019-07-24] MEDS: K and/or MAG REPLACEMENT MC SCH ×2 (08:00→20:00)
[2019-07-24] MEDS: ipratropium 0.5 MG/2.5ML nebule IH SCH ×2 (09:46→20:53)
[2019-07-24] MEDS ORDERED: pneumococcal 23-VAL P-sac vacc 25 mcg/0.5ml vial IMVAC ONE (10:00)
[2019-07-24] MEDS: insulin Lispro (HumaLOG) vial - multi-dose SQ SCH ×3 (10:22→19:02)
[2019-07-24] MEDS: potassium CL 10mEq/100ml bag 100 ML IV PRN ×3 (10:23→13:07)
[2019-07-24 11:00] VITALS: BP 109/56
--- NOTE | 2019-07-24 12:30 | NUR ---
Malnutrition consult: Unable to obtain information from pt at this time as pt is A/O x2 per physical assessment. Patient's BMI is low at 17.2 using current standing scaled weight 36 kg, most recent wt hx is pt reported wt of 36.2 kg in January of this year. Pt currently 94% IBW. Pt on [facility] soft CHO controlled diet documented with 50-75% PO intake meeting nutrient needs given low weight. Pt documented with severe decrease in muscle strength and no edema. Pt currently lacks a minimum of two criteria for malnutrition. Will continue to follow closely. Addendum: 07/24/19 at [address] Amended: Links added.
[2019-07-24] MEDS ORDERED: VANCOMYCIN LEVEL PO ONE (16:30)
[2019-07-24] MEDS: vancomycin/NS 1 GM ADD-VANTAGE 250 ML IV SCH (17:27)
[2019-07-24 18:00] VITALS: BP 110/58
--- NOTE | 2019-07-24 18:28 | NUR ---
Problems reprioritized. Patient report given, questions answered & plan of care reviewed with CHARO Chang.
[2019-07-24] MEDS: traZODone 50mg tablet PO SCH (20:34)
[2019-07-24] MEDS: baclofen 10mg tablet PO SCH (20:34)
[2019-07-24] MEDS: insulin glargine (Lantus) pen - multi-dose SQ SCH (21:08)
[2019-07-25] VITALS: BP 143/70
--- NOTE | 2019-07-25 06:32 | NUR ---
REPORT GIVEN TO CHARO COLBERT
--- NOTE | 2019-07-25 06:46 | NUR ---
Patient in room [facility] 359. I have received report from Bernardo MANCILLA and had the opportunity to ask questions and assume patient care.
[2019-07-25 07:00] VITALS: BP 178/93
[2019-07-25] MEDS: pantoprazole 40mg Tablet.DR PO SCH (07:21)
[2019-07-25] MEDS: metroNIDAZOLE 500mg tablet PO SCH ×2 (07:21→19:43)
[2019-07-25] MEDS: FLUoxetine 10mg capsule PO SCH (07:21)
[2019-07-25] MEDS: furosemide 20MG tablet PO SCH ×2 (07:21→19:44)
[2019-07-25] MEDS: levoTHYROXINE 25mcg tablet PO SCH (07:21)
[2019-07-25] MEDS: amLODIPine 5mg tablet PO SCH (07:21)
[2019-07-25] MEDS: celeCOXIB 100mg capsule PO SCH ×2 (07:21→19:43)
[2019-07-25] MEDS: morphine 2 MG/ML inj. syringe IV PRN ×3 (07:21→19:43)
[2019-07-25] MEDS: heparin, porcine 5000 units/ml vial SQ SCH ×2 (07:22→19:44)
[2019-07-25] MEDS: cefpodoxime proxetil 100mg tablet PO SCH ×2 (07:31→17:11)
[2019-07-25] MEDS: K and/or MAG REPLACEMENT MC SCH ×2 (08:00→20:00)
[2019-07-25] MEDS: ipratropium 0.5 MG/2.5ML nebule IH SCH ×2 (09:16→20:00)
[2019-07-25] MEDS: insulin Lispro (HumaLOG) vial - multi-dose SQ SCH ×3 (09:45→18:50)
[2019-07-25 11:00] VITALS: BP 109/67
[2019-07-25] MEDS: normal saline 1000ml 1,000 ML IV SCH ×2 (11:31→21:45)
[2019-07-25] MEDS ORDERED: magnesium 2GM in 50ml NS 50 ML IV PRN (12:00)
[2019-07-25] MEDS ORDERED: potassium Cl 20 mEq SR tablet PO PRN (12:00)
[2019-07-25] MEDS ORDERED: potassium CL 10mEq/100ml bag 100 ML IV PRN (12:00)
[2019-07-25] MEDS ORDERED: magnesium 4gm in 100ml NS 100 ML IV PRN (12:00)
[2019-07-25] MEDS ORDERED: magnesium Cl slow-release 64mg tablet PO PRN (12:00)
[2019-07-25] MEDS ORDERED: LORazepam 0.5 MG tablet PO PRN (12:20)
[2019-07-25] MEDS: HYDROcodone/acetaminophen 10/325mg tab PO PRN ×3 (12:48→23:00)
[2019-07-25] MEDS: potassium Cl 20 mEq SR tablet PO PRN ×3 (12:48→21:35)
--- NOTE | 2019-07-25 16:10 | NUR ---
unable to ascertain if patient has had pneumonia shot within 5 yrs. patient emotional at times with regards no visitors and it being the season. Asking often for pain relief and ativan. Dr vides aware. patient medicated as per emar.
[2019-07-25] MEDS ORDERED: VANCOmycin 1250MG/NS 250ml Bag 250 ML IV SCH (17:00)
[2019-07-25 19:30] VITALS: BP 160/86
[2019-07-25] MEDS: insulin glargine (Lantus) pen - multi-dose SQ SCH (20:52)
[2019-07-25] MEDS: traZODone 50mg tablet PO SCH (21:35)
[2019-07-25] MEDS: baclofen 10mg tablet PO SCH (21:35)
[2019-07-25 23:00] VITALS: BP 153/77
[2019-07-26] MEDS: morphine 2 MG/ML inj. syringe IV PRN ×3 (04:59→14:05)
[2019-07-26 05:39] LABS: BASOPHILS # (AUTO) 0.1 X10'3 (0-0.2); BASOPHILS % (AUTO) 0.7 % (0-1); EOSINOPHILS # (AUTO) 0.1 X10'3 (0-0.9); EOSINOPHILS % (AUTO) 1.5 % (0-6); HEMATOCRIT 26.2 % (35.0-45.0); HEMOGLOBIN 8.9 g/dl (12.0-16.0); LYMPHOCYTES # (AUTO) 1.4 X10'3 (1.1-4.8); LYMPHOCYTES % (AUTO) 18.5 % (21-51); MEAN CORPUSCULAR HEMOGLOBIN 30.4 PG (27.0-31.0); MEAN CORPUSCULAR HGB CONC 33.8 g/dL (33.0-36.5); MEAN CORPUSCULAR VOLUME 89.9 FL (78-98); MEAN PLATELET VOLUME 7.4 FL (7.4-10.4); MONOCYTES # (AUTO) 0.5 X10'3 (0-0.9); MONOCYTES % (AUTO) 6.2 % (2-12); NEUTROPHILS # (AUTO) 5.5 X10'3 (1.8-7.7); NEUTROPHILS % (AUTO) 73.1 % (42-75); PLATELET COUNT 356 X10'3 (140-440); RED BLOOD COUNT 2.92 X10'6 (4.20-5.60); RED CELL DISTRIBUTION WIDTH 14.9 % (11.5-14.5); WHITE BLOOD COUNT 7.5 X10'3 (4.5-11.0)
[2019-07-26 05:44] LABS: ALBUMIN 1.2 G/DL (3.4-5.0); ANION GAP 8 (8-16); BLOOD UREA NITROGEN 18 MG/DL (7-18); BUN/CREATININE RATIO 18.8 (6.6-38.0); CALCIUM 7.6 MG/DL (8.5-10.1); CHLORIDE 111 MMOL/L (99-107); CREATININE 0.96 MG/DL (0.40-0.90); GLUCOSE 122 MG/DL (70-104); POTASSIUM 4.6 MMOL/L (3.5-5.1); SODIUM 142 MMOL/L (135-145); TOTAL CARBON DIOXIDE 23.3 MMOL/L (24-32); eGFR 58 ML/MIN
[2019-07-26 07:30] VITALS: BP 97/56
[2019-07-26] MEDS: K and/or MAG REPLACEMENT MC SCH (08:00)
[2019-07-26] MEDS: FLUoxetine 10mg capsule PO SCH (08:27)
[2019-07-26] MEDS: pantoprazole 40mg Tablet.DR PO SCH (08:27)
[2019-07-26] MEDS: furosemide 20MG tablet PO SCH (08:27)
[2019-07-26] MEDS: celeCOXIB 100mg capsule PO SCH (08:27)
[2019-07-26] MEDS: amLODIPine 5mg tablet PO SCH (08:27)
[2019-07-26] MEDS: levoTHYROXINE 25mcg tablet PO SCH (08:27)
[2019-07-26] MEDS: normal saline 1000ml 1,000 ML IV SCH (08:28)
[2019-07-26] MEDS: metroNIDAZOLE 500mg tablet PO SCH (08:28)
[2019-07-26] MEDS: heparin, porcine 5000 units/ml vial SQ SCH (08:29)
[2019-07-26] MEDS ORDERED: ipratropium 0.5 MG/2.5ML nebule IH SCH (09:00)
[2019-07-26] MEDS: insulin Lispro (HumaLOG) vial - multi-dose SQ SCH (09:13)
[2019-07-26] MEDS ORDERED: CEFP100T7 PO (13:02)
[2019-07-26] MEDS ORDERED: HYDR-4353 PO (13:02)
[2019-07-26] MEDS ORDERED: METR500T PO (13:02)
[2019-07-26] MEDS: cefpodoxime proxetil 100mg tablet PO SCH (14:05)
--- NOTE | 2019-07-26 15:05 | NUR ---
Reassessment: Pt PO 75-100% avg meals since admit meeting healing needs. PT remains AOx2 and not appropriate for DM/high protein eds. Pt possible d/c today w/ d/c orders in place. DM/high protein eds w/ RD contact information mailed to pt home address. No BM 5 days since admit w/ MoM PRN not yet given. Would benefit from routine bowel care per MD. GALDAMEZ Dreamise Will continue to monitor. Recommendations: 1) Continue CHO controlled diet 2) Routine Bowel care 3) Wt per rx Addendum: 07/26/19 at [address] Amended: Links added.
[2019-07-28] MEDS ORDERED: VANCOMYCIN LEVEL PO ONE (16:30)
== END 2019-07-26 16:38 | disposition home health service (06) | DRG 853 ==
LOC: ER 14:05 → ED HOLD 16:38 → SUR 3N 19:19
PROVIDERS: ADMIT Family Medicine; ATTEND Family Medicine
PROC: 0X6R0Z0 Detachment at Left Middle Finger, Complete, Open Approach (ICD-10-PCS; principal; 2019-07-22 15:26)
DX: A41.9 Sepsis, unspecified organism (principal); L89.153 Pressure ulcer of sacral region, stage 3; M86.9 Osteomyelitis, unspecified; E11.52 Type 2 diabetes mellitus with diabetic peripheral angiopathy with gangrene; I96 Gangrene, not elsewhere classified; F11.20 Opioid dependence, uncomplicated; M84.445A Pathological fracture, left finger(s), initial encounter for fracture; L03.012 Cellulitis of left finger; B96.89 Other specified bacterial agents as the cause of diseases classified elsewhere; F17.210 Nicotine dependence, cigarettes, uncomplicated; Z89.021 Acquired absence of right finger(s); Z91.14 Patient's other noncompliance with medication regimen; I10 Essential (primary) hypertension; E03.9 Hypothyroidism, unspecified; J44.9 Chronic obstructive pulmonary disease, unspecified; E87.6 Hypokalemia
CPT/HCPCS: 36415; 73130; 80048; 80053; 80202; 82948; 83036; 83605; 84443; 85025; 85610; 85651; 86140; 87040; 87070; 87075; 87076; 87077; 87081; 87102; 87186; 88305; 88311; 94640; 94760; 96365; 96366; 96375; 99285; A4215; A4618; A6446; A7000; G0378; J0696; J1644; J1815; J2060; J2270; J2405; J2704; J3010; J3370; J3480; J3490; J7030; J7120